=== PATIENT | female | born 1990 | race African-American/Black ===

== ENCOUNTER → 2021-12-20 | Outpatient (CLI) | payer MEDICAID ==
[~2021-12-20] MED LIST: NO HOME MEDICATIONS; NORCO 325 MG-51 TAB PO; PERCOCET 325 MG1 TA2 PO; PHENERGAN 25 TA25 MG PO; ZITHROMAX 250M250 MG PO; ZOFRAN 4MG T4 MG/TAB PO
== END ==
LOC: COL.RAD 13:23
DX: E07.9 Disorder of thyroid, unspecified (principal)